=== PATIENT | male | born 1955 | race Caucasian/White ===

== ENCOUNTER 2021-08-23 09:20 | Emergency (ER) | payer MEDICARE, SELFPAY ==
[2021-08-23 09:32] VITALS: BP 156/91; PULSE 93; RESP 18; TEMP 37; O2SAT 98
--- NOTE | 2021-08-23 10:13 | ED.URI ---
HPI - URI/Sore Throat General Chief Complaint: Upper Respiratory Infection Stated Complaint: Sore Throat/Headache Time Seen by Provider: 08/23/21 10:26 Source: patient and RN notes reviewed Mode of arrival: ambulatory Limitations: no limitations History of Present Illness HPI Narrative: 66-year-old male presents with concern for sore throat, fatigue, headache for 4 to 5 days. He reports he was exposed to Covid on August 16. Reports a previous Covid infection for which he was hospitalized. He denies shortness of breath, cough, fever. Reports he has been taking Monie-D. elicited complaint: sore throat Related Data Allergies Allergy/AdvReac Type Severity Reaction Status Date / Time atorvastatin AdvReac Intermediate Joint Pain Verified 08/23/21 10:08 Review of Systems Review of Systems: CONSTITUTIONAL: Reports malaise, fatigue. Denies chills, sweats, or fever. EYES: Denies visual changes, redness, or discharge. ENT: Denies rhinorrhea, congestion, sinus pain, otalgia. Reports sore throat. CARDIOVASCULAR: Denies chest pain, palpitations, or edema. RESPIRATORY: Reports cough. Denies dyspnea. GASTROINTESTINAL: Denies abdominal pain, nausea, vomiting, diarrhea SKIN: Denies rash or itching. MUSCULOSKELETAL: Denies myalgia. NEUROLOGIC: Reports headache. All systems reviewed & are unremarkable except as noted in HPI and below PMFSH Past Medical History Medical History (Updated 08/23/21 @ 10:52 by Negin Sandoval NP) Amputation finger Hyperlipidemia Neuropathy Social History Social History (Updated 07/06/21 @ 10:24 by Lelia Carrillo) Social History: caffeine-coffee daily, tea Smoking status: Former smoker Smokeless tobacco user: chewing tobacco Alcohol intake: current Alcohol use details: occasionally Comments At time of signature, agree with nursing past medical, surgical, social and family history. There is no relevant family history pertinent to the presenting complaint Exam Narrative: GENERAL: Well-appearing, well-nourished, and in no acute distress. HEAD: Normocephalic EYES: PERRLA, conjunctivae clear ENT: Nares clear. Mucous membranes moist. TM pearly lucia with sharp light reflex bilaterally; no tragal tenderness. Oropharynx erythematous without lesions. Tonsils not enlarged and without exudate, no drooling, no hoarseness, no trismus, uvula midline. NECK: Supple. No lymphadenopathy CHEST: Clear to auscultation, breath sounds equal. No wheezing, rhonchi, rales, or stridor. No respiratory distress, speaks in full sentences. HEART: Regular rate and rhythm. No murmur heard. SKIN: Warm, dry, no rash. NEURO: Alert and oriented x3. PSYCH: Normal mood and affect Course Course Emergency Course: Patient is aware of diagnosis, understands and agrees to treatment plan. Anticipatory guidance given. Patient agrees to follow-up as directed and is aware of reasons to seek care at the emergency department. Portions of this record may have been created with voice recognition software Vital Signs Vital signs: Vital Signs Temperature 98.6 F 08/23/21 09:32 Pulse Rate 93 08/23/21 09:32 Respiratory Rate 18 08/23/21 09:32 Blood Pressure 156/91 H 08/23/21 09:32 Pulse Oximetry 98 08/23/21 09:32 Temperature 98.6 F 08/23/21 09:32 Pulse Rate 93 08/23/21 09:32 Respiratory Rate 18 08/23/21 09:32 Blood Pressure 156/91 H 08/23/21 09:32 Pulse Oximetry 98 08/23/21 09:32 Reviewed. MDM - URI/Sore Throat MDM Narrative Medical decision making narrative: Differential diagnosis considered: Carbajal virus, strep pharyngitis, allergic rhinitis, upper respiratory tract infection, sinusitis, rhinosinusitis, nasopharyngitis. viral pharyngitis, otitis media, otitis externa, pneumonia, bronchitis, viral cough syndrome, viral syndrome, and influenza. Exam findings show no acute concerns or changes; patient is non-toxic appearing and is in no distress. Patient is appropriate for outpatient treatment
== END 2021-08-23 10:58 | disposition home or self-care (01) ==
PROVIDERS: Emergency Provider Nurse Practitioner; PCP Internal Medicine
DX: J06.9 Acute upper respiratory infection, unspecified (principal); Z20.822 Contact with and (suspected) exposure to COVID-19; E78.5 Hyperlipidemia, unspecified; G62.9 Polyneuropathy, unspecified; F17.220 Nicotine dependence, chewing tobacco, uncomplicated
CPT/HCPCS: 87081; 87426; 87880; 99213; C9803; G0463

== ENCOUNTER 2022-11-01 15:25 | Outpatient (CLI) | payer MEDICARE, SELFPAY ==
[2022-11-01 19:40] LABS: Kit Draw Collected
== END 2022-11-01 15:26 | disposition home or self-care (01) ==
LOC: ANHGOSHLAB 15:27
PROVIDERS: PCP Internal Medicine; Visit Provider Nurse Practitioner
DX: N40.0 Benign prostatic hyperplasia without lower urinary tract symptoms (principal); R53.83 Other fatigue; E78.5 Hyperlipidemia, unspecified; R73.03 Prediabetes; E66.9 Obesity, unspecified
CPT/HCPCS: 36415

== ENCOUNTER 2024-07-22 08:37 | Outpatient (CLI) | payer MEDICARE, SELFPAY ==
--- NOTE | ~2024-07-22 | PE_ITS ---
EXAMINATION: PET_PETPSMAST_PT DATE: 07/22/2024 12:21 INDICATION: Malignant neoplasm of prostate. TECHNIQUE: 4.495 mCi of Ga-68 gozetotide was administered intravenously. Low dose computed tomography (CT) images were acquired from the base of the brain to the proximal thighs for attenuation correcti on and anatomic localization. Automated exposure control was employed. Dose-length product (DLP) was 1309 mGy-cm. Positron emission tomography (PET) images were acquired in the same distribution. COMPARISON: None FINDINGS: Head/neck: There are no pathologically enlarged lymph nodes. There are nodules in the thyroid measuri ng up to 11 mm, likely not clinically significant. Chest: The lungs demonstrate mild atelectasis. No pleural effusion. The heart size is normal. There a re coronary artery calcifications. No pericardial effusion. Abdomen/pelvis/proximal thighs: The liver, gallbladder, spleen, pancreas, adrenal glands, and left ki dney are normal. There is a 19 mm cyst in right kidney. The prostate is normal in size. There is incr eased activity in the prostate on the left with maximum SUV of 4.2. There are no dilated loops of bow el. The appendix is normal. There are no pathologically enlarged lymph nodes. There is no free intrap eritoneal fluid. There is a 10 mm sclerotic lesion in proximal left femur with maximum SUV of 4.0. IMPRESSION: 1. Normal-sized prostate with increased activity on the left, consistent with primary malignancy. 2. 10 mm sclerotic lesion with increased activity in proximal left femur, consistent with metastatic disease. Reviewed, dictated and finalized at location A. GED CARE MANAGER IMPRESSION: 1. Normal-sized prostate with increased activity on the left, consistent with p rimary malignancy. 2. 10 mm sclerotic lesion with increased activity in proximal left femur, consi stent with metastatic disease.
== END 2024-07-22 08:38 | disposition home or self-care (01) ==
PROVIDERS: PCP Nurse Practitioner; Visit Provider Urology
DX: C61 Malignant neoplasm of prostate (principal)
CPT/HCPCS: 78815; A9596

== ENCOUNTER 2024-08-07 08:29 | Outpatient (CLI) | payer MEDICARE, SELFPAY ==
--- NOTE | ~2024-08-07 | NM_ITS ---
EXAMINATION: NM bone scan whole body DATE: 08/07/2024 13:06 INDICATION: Melena neoplasm of prostate. TECHNIQUE: 25.3 mCi Tc-99m HDP was administered intravenously. Delayed whole-body scintigrams were o btained. COMPARISON: PET/CT 03/21/2024, left knee radiographs 06/01/16 FINDINGS: There is focal increased activity in the intertrochanteric region of proximal left femur. T here is focal increased activity in 2 anterior right ribs correlating with two healing/healed fractur es by CT. There is joint-centered increased activity in the knees, likely osteoarthritis. IMPRESSION: 1. Focal increased activity in the intertrochanteric region of proximal left femur correlating with a sclerotic lesion by CT, consistent with metastatic disease. Reviewed, dictated and finalized at location A. AN/WOMAN IMPRESSION: 1. Focal increased activity in the intertrochanteric region of proximal left fe mur correlating with a sclerotic lesion by CT, consistent with metastatic disea se.
== END 2024-08-07 08:30 | disposition home or self-care (01) ==
PROVIDERS: PCP Nurse Practitioner; Visit Provider Urology
DX: C80.1 Malignant (primary) neoplasm, unspecified (principal); Z19.1 Hormone sensitive malignancy status
CPT/HCPCS: 78306; A9503